=== PATIENT | female | born 2000 | race African-American/Black ===

== ENCOUNTER 2019-04-05 13:06 | Outpatient (CLI) | payer OTHER ==
[~2019-04-05] VITALS: Ht 165.1 cm; Wt 50.7 kg
[2019-04-05] MEDS ORDERED: PRENTAB9 PO (13:18)
[2019-04-05 13:23] VITALS: BP 97/52
[2019-04-05 15:36] VITALS: BP 98/54
--- NOTE | 2019-04-05 15:44 | REP ---
OB ULTRASOUND: Real-time sonographic evaluation of the gravid uterus performed utilizing transabdominal and endovaginal technique. There is a single living intrauterine gestation. Estimated gestational age is 27 weeks 1 days, EDC 07/04/2019. Cervix is closed and measures 3.0 cm in length. heart rate 140 beats per minute. Amniotic fluid within normal limits, SHANTA 13.4 within normal range of 9.5 to 22.6. S/D ratio 2.90 within normal range. RI 0.65 within normal range. position is vertex. IMPRESSION: Transvaginal cervical length 3 cm. The cervix is closed with no funneling. heart rate 140 beats per minute. Normal amniotic fluid volume. Electronically Signed by Rojas Perez MD 04/05/2019 04:06 P
--- NOTE | 2019-04-05 16:16 | IPN ---
DATE: 04/05/2019 Mari is a 18-year-old, 3, para 0-1-1-1, at 27-1/7 weeks gestation, estimated date of confinement (EDC) of 07/04/2019 based on last period and confirmed by second trimester ultrasound, presents to labor and delivery today with a complaint of sharp stabbing pain in both lower quadrants with activity. She denies vaginal bleeding, leakage of fluid and contractions. Her fetus has been active. She also complains of some shortness of breath. [place] care [place] with a transfer into [facility]. She is scheduled to be seen for the first time next week in this local office. course complicated by a history of delivery, she did decline Tuyet injections, history of anxiety, history of Marfan's syndrome where she was seen and no definitive diagnosis was come to. OBSTETRICAL HISTORY: May 2016, elective termination of , dilation and curettage. December 2016, 36-5/7 weeks, 5 pound 15 ounce male, premature rupture of membranes (PPROM), delivery. OBSTETRIC LABS: O+, antibody screen negative, varicella immune, rubella immune, VDRL nonreactive. Hep B surface antigen negative, HIV negative. Hep C antibody nonreactive. Initial chlamydia was positive. Gonorrhea negative. Test of cure chlamydia and gonorrhea both negative. Quad screen was negative. She has yet to perform her gestational diabetic screening and GBS is unknown. PAST MEDICAL HISTORY: 1. Anxiety. 2. Chlamydia. SURGERIES: Dilation and curettage. FAMILY HISTORY: Diabetes, thyroid disease, heart murmur. SOCIAL HISTORY: The patient is . Her and her child are at bedside. She is a nonsmoker. She denies alcohol and drug use. No history of any of physical, sexual or emotional abuse, and a positive history of Chlamydia. allergies. NO KNOWN DRUG ALLERGIES. CURRENT MEDICATIONS: - vitamins OBJECTIVE: Temperature 98.6, pulse 94, respirations are 16. Her blood pressure is 97/52. She is alert and oriented times three. She appears comfortable, in no distress. Her respirations are regular and easy. She is smiling and talkative as well as texting on her telephone. heart rate is 140, appropriate for gestational age. There is no pattern of regular contractions. Sterile vaginal exam deferred. Sonogram performed with a cervical length of 3 cm, posterior placenta. Amniotic fluid index of 13.4 cm. ASSESSMENT: Interim at 27-1/7 weeks, heart rate appropriate for gestational age, normal discomforts in , ligament discomfort. PLAN: I reviewed palliative measures for routine discomforts of . Advised abdominal support belt, physical therapy, massage if desired. I did review signs and symptoms of labor, access to care and movement counts. I reviewed all danger sounds to which to report. The patient and her have had their questions answered and are agreeable to discharge. They requested a note for to be out work. The note was not provided as the discomfort she has are normal and there is no need for her to be at home to help her with activities of daily living. KOLE
== END 2019-04-05 15:45 | disposition home or self-care (01) ==
LOC: M LDO 13:06
PROVIDERS: ATTEND Advanced Practice Midwife
DX: O26.893 Other specified pregnancy related conditions, third trimester (principal); R10.30 Lower abdominal pain, unspecified; R06.02 Shortness of breath; Z3A.27 27 weeks gestation of pregnancy

== ENCOUNTER → 2019-04-20 | Outpatient (CLI) | payer OTHER ==
[~2019-04-20] MED LIST: PRENTAB9 PO
[2019-04-20 17:25] LABS: HEMATOCRIT 32.6 % (36.0-47.0); HEMOGLOBIN 10.6 g/dl (12.0-15.5); MEAN CORPUSCULAR HEMOGLOBIN 28.9 pg (27.0-33.0); MEAN CORPUSCULAR HGB CONC 32.5 g/dl (32.0-36.5); MEAN CORPUSCULAR VOLUME 88.8 fl (80.0-96.0); PLATELET COUNT, AUTOMATED 166 10^3/uL (150-450); RED BLOOD COUNT 3.67 10^6/uL (4.00-5.40); WHITE BLOOD COUNT 10.9 10^3/uL (4.0-10.0)
== END ==
LOC: M LRY 10:00
PROVIDERS: ATTEND Obstetrics & Gynecology
DX: Z36.89 Encounter for other specified antenatal screening (principal); O09.212 Supervision of pregnancy with history of pre-term labor, second trimester

== ENCOUNTER → 2019-05-25 | Outpatient (CLI) | payer OTHER ==
--- NOTE | 2019-05-26 14:07 | REP ---
Clinical: Growth evaluation. Comparison: 04/05/2019 . Findings: Examination demonstrates a single live intrauterine in cephalic presentation. motion is identified by technologist. Placenta is noted posterior and grade I I without evidence for placenta previa or abruption. Amniotic fluid volume is normal. Cervix measures 3.0 cm in length and appears closed. No evidence for nuchal cord. Gestational age by LMP 34 weeks 2 days with PEPE 07/04/2019 . Gestational age by current measurements 32 weeks 6 days with PEPE 07/14/2019 . FHR equals 130 beats per minute. BPD 8.3 cm 33 weeks 2 days HC 29.6 cm 32 weeks 5 days AC 28.7 cm 32 weeks 5 days FL 6.4 cm 32 weeks 6 days HL 5.7 cm 33 weeks 1 day HC/AC ratio 1.03 Estimated weight 2052 grams (20th percentile). Amniotic fluid index: 12.7 cm Umbilical cord SD ratio: 2.00 Impression: Single live intrauterine in cephalic presentation demonstrating appropriate interval growth. No gross abnormalities are identified. Electronically Signed by Matty Castillo MD 05/26/2019 01:58 P
== END ==
LOC: M RAD 12:51
PROVIDERS: ATTEND Advanced Practice Midwife
DX: O99.213 Obesity complicating pregnancy, third trimester (principal); O99.89 Other specified diseases and conditions complicating pregnancy, childbirth and the puerperium

== ENCOUNTER → 2019-05-26 | Outpatient (REF) | payer OTHER | LOC: M LAB REF 16:37 | PROVIDERS: ATTEND Advanced Practice Midwife | DX: O09.213 Supervision of pregnancy with history of pre-term labor, third trimester (principal) ==

== ENCOUNTER 2019-06-05 15:38 | Inpatient (IN) | payer OTHER ==
[~2019-06-05] VITALS: Ht 165.1 cm; Wt 52.0 kg
[2019-06-05 15:52] VITALS: BP 108/64
[2019-06-05] MEDS ORDERED: LACTATED RINGER'S 1000 ML IV STA (16:28)
[2019-06-05 16:48] LABS: APPEARANCE, URINE CLEAR (CLEAR); BACTERIA, URINE AUTO NEGATIVE (NEGATIVE); BILIRUBIN, URINE AUTO NEGATIVE (NEGATIVE); BLOOD, URINE BLOOD NEGATIVE (NEGATIVE); COLOR, URINE YELLOW (YELLOW); GLUCOSE, URINE (UA) AUTO NEGATIVE (NEGATIVE); KETONE, URINE AUTO NEGATIVE (NEGATIVE); LEUKOCYTE ESTERASE, URINE AUTO NEGATIVE (NEGATIVE); NITRITE, URINE AUTO NEGATIVE (NEGATIVE); PROTEIN, URINE AUTO NEGATIVE (NEGATIVE); RBC, URINE AUTO 0 /HPF (0-3); SPECIFIC GRAVITY URINE AUTO 1.008 (1.002-1.035); SQUAMOUS EPITHELIAL CELL UR AU 1 /HPF (0-6); UROBILINOGEN, URINE AUTO 0.2 mg/dL (0.0-2.0); WBC, URINE AUTO 1 /HPF (0-3)
[2019-06-05] MEDS: BETAMETHASONE SOLUSPAN 6MG/ML INJ 5ML (J0702) IM SCH (16:52)
[2019-06-05 17:00] VITALS: BP 120/76
[2019-06-05 17:22] LABS: HEMATOCRIT 32.1 % (36.0-47.0); HEMOGLOBIN 10.6 g/dl (12.0-15.5); MEAN CORPUSCULAR HEMOGLOBIN 28.5 pg (27.0-33.0); MEAN CORPUSCULAR VOLUME 86.3 fl (80.0-96.0); PLATELET COUNT, AUTOMATED 158 10^3/uL (150-450); RED BLOOD COUNT 3.72 10^6/uL (4.00-5.40); WHITE BLOOD COUNT 10.8 10^3/uL (4.0-10.0)
--- NOTE | 2019-06-05 17:41 | HPEPDOC ---
Obstetrical History & Physical General Date of Admission observation: 06/05/19 Primary Care Physician: MARTY SCOTT CNM History of Present Illness Patient is a 18-year-old female who is a at 35.6 weeks gestation with an PEPE of 07/04/19 based off of her LMP. She transferred care in her third trimester with [facility]. Her has been complicated by +CT during and a history of PPROM and delivery at 36.[address] was negative. She was being worked up for Marfan's Syndrome but no definitive diagnosis was made. She presents to L&D today with increased pressure and back pain that is intermittent and about every 2 minutes. She denies contractions in the abdomen. She denies bleeding or leaking of fluid. She reports vaginal discharge that is not itching and has not odor. She denies vaginal bleeding. Information Provided By: Patient Age: 18 : 3 Term: 0 Pre-term: 1 Abortions: 1 Livin Care Care: Good Care Dating Final EDC: Jul 04, 2019 Final EDC by: LMP LMP: Sep 27, 2018 EGA at Admission: 35.6 Antepartum Course Diagnos(e)s History of PPROM at 36.6 weeks Height (inches): 65 Pre- weight (lbs.): 92 Admission Weight (lbs.): 114 Change in Weight (lbs.): 22 Past Medical History Past Obstetrical History : Past Obstetrical History: Primgravida Gestation: 36.6 Type of Delivery: Spontaneous Vaginal Del. 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 Low BMI Surgical History: Dilatation and Curettage Family History Significant Family History: Diabetes, Other (thyroid disease) Social History Marital Status: Family situation: Spouse/partner home Psychosocial History: Anxiety * Smoker: non-smoker Alcohol: Denies Drugs: denies Abuse Violence Screening Have you been hit/kicked/slapp: No Have you been sexually assault: No Allergies Coded Allergies: No Known Allergies (Unverified , 04/05/19) Medications Scheduled No.137/Iron/Folic Acd ( Vitamin Tablet) 1 Each Tablet, 1 TAB PO DAILY Physical Examination Physical Examination GENERAL: Alert and oriented times three. BREAST: . ABDOMEN: Gravid and non-tender to touch. FETUS: Is vertex (VTX) by sterile vaginal examination (SVE), fetus is vertex (VTX) by Brice. HEART RATE: Regular rate and rhythm. LUNGS: Clear to auscultation (CTA). EXTREMITIES: No edema. No clonus. Deep tendon reflexes (DTRs) + 2. Vital Signs/I&O Vital Signs Date Time Temp Pulse Resp B/P (MAP) Pulse Ox O2 Delivery O2 Flow Rate FiO2 06/05/19 17:00 99.4 93 18 120/76 (91) 06/05/19 15:52 100 Room Air Laboratory Data 24H LABS Laboratory Tests 2 06/05/19 16:14: Urine Color YELLOW, Urine Appearance CLEAR, Urine pH 7.0, Urine Specific [place] 1.008, Urine Protein NEGATIVE, Urine Glucose (Auto)(UA) NEGATIVE, Urine Ketones (Auto) NEGATIVE, Urine Blood NEGATIVE, Urine Nitrite NEGATIVE, Urine Bilirubin NEGATIVE, Urine Urobilinogen 0.2, Urine Leukocyte Esterase (Auto) NEGATIVE, Urine WBC (Auto) 1, Urine RBC (Auto) 0, Urine Hyaline Casts (Auto) 0, Urine Bacteria (Auto) NEGATIVE, Urine Squamous Epithelial Cells 1, Urine Sperm (Auto) 06/05/19 16:56: CBC/BMP Microbiology Microbiology 06/05/19 Urine Culture, Received Pending Urine Culture: No Growth Pertinent Laboratoy Data Blood Type: O+ RBC Antibody Screen: Negative HIV: Negative Hepatitis B: Negative Hepatitis C: Negative Rapid Plasma Reagin: Nonreactive Rubella: Immune Varicella: Immune Chlamydia/Gonorrhea: Positive (repeat negative) Group B Streptococcus: Negative Quad Screen Test: Negative Glucose Tolerance Test: 115 Anatomy Ultrasound Ultrasound Date: May 25, 2019 Normal Anatomy: Yes Placenta Previa: No Estimated Weight (grams): 2051 Steroid Therapy Steroid Therapy: Yes Date #1: Jun 05, 2019 Vaginal Examination Dilation: 2cm (2-3 cm) Effacement: 90% Station: 0 Cervical Consistency: Soft Cervical Position: Middle Presentation: Cephalic presentation Position: Vertex (occiput) Assessment Heart Rate (FHR): 125 Variability: Moderate Accelerations: Positive Decelerations: None Tocometer Contractions: Yes Frequency: regular Multi-drug resistant Organism: No history of MDRO Assessment/Plan Assessment IUP at 35.6 weeks gestation contractions-rule out labor GBS negative Category I FHR tracing Plan OUT patient status for 24 hours. Will admit patient with cervical change. Counseled on plan of care. Diet: regular. Group B Streptococcus (GBS) negative. Labs and intravenous (IV) per unit protocol. Betamethasone IM injections 12 mg now and again in 24 hours. Lactated Ringers (LR): Bolus 800 mL, then at 125 mL/hr. Will continue to monitor for labor. MARTY SCOTT CNM Jun 05, 2019 17:41
[2019-06-05] MEDS: LR 1,000 ML IV SCH ×2 (17:44→19:41)
[2019-06-05 18:35] VITALS: BP 117/73
[2019-06-05] MEDS ORDERED: PROMETHAZINE INJ 25 MG/ML VIAL (J2550) IV ONE (19:45)
[2019-06-05] MEDS ORDERED: BUTORPHANOL 2 MG/ML INJ (J0595) IV ONE (19:45)
--- NOTE | 2019-06-05 19:50 | IPNPDOC ---
Obstetrical Progress Note Date of Service Jun 05, 2019 Subjective Patient reports she is still feeling contractions in her back. Objective Vital Signs Date Time Temp Pulse Resp B/P (MAP) Pulse Ox O2 Delivery O2 Flow Rate FiO2 06/05/19 18:35 91 18 117/73 (88) 06/05/19 17:00 99.4 06/05/19 15:52 100 Room Air Assessment Heart Rate (FHR): 130 Variability: Moderate Accelerations: Positive Decelerations: None Heart Rate Tracing: Category I Tocometer Contractions: Yes Frequency: other (5-8 minutes) Assessment and Plan Age: 18 : 3 Term: 0 Pre-term: 1 Abortions: 1 Livin Weeks & Days 35.6 Status: Reassuring Additional Comments No change noted on . Patient desires to have something to help with her back pain and to help her sleep. Stadol and Phenergan ordered via IV. MARTY SCOTT CNM Jun 05, 2019 19:50
--- NOTE | 2019-06-06 00:05 | IPNPDOC ---
Obstetrical Progress Note Date of Service Jun 06, 2019 Subjective Patient rpeorts she is more uncomfortable and now feeling some of her contractions in her abdomen as cramping. Still having contractions in her back. Objective Vital Signs Date Time Temp Pulse Resp B/P (MAP) Pulse Ox O2 Delivery O2 Flow Rate FiO2 06/05/19 20:08 18 06/05/19 18:35 91 117/73 (88) 06/05/19 17:00 99.4 06/05/19 15:52 100 Room Air Assessment Heart Rate (FHR): 130 Variability: Moderate Accelerations: Positive Decelerations: None Heart Rate Tracing: Category I Tocometer Contractions: Yes Frequency: regular, every 1-3 min., other (uterine irritability noted) Sterile Vaginal Examination Dilation: 3 cm Effacement (%): 90% Station: 0 Cervical Consistency: Soft Cervical Position: Middle Postion/Presentation: Cephalic presentation Assessment and Plan Age: 18 Weeks & Days 35.6 weeks Status: Reassuring Group B Streptococcus: Negative Additional Comments Desires more IV pain medications. Coags ordered due to contractions and frequency. SVE: no bloody show noted. MARTY SCOTT CNM Jun 06, 2019 00:05
[2019-06-06 00:46] LABS: INR 1.06; PROTHROMBIN TIME 13.5 SECONDS (11.8-14.0)
[2019-06-06 00:47] LABS: PARTIAL THROMBOPLASTIN TIME 27.4 SECONDS (25.0-38.4)
[2019-06-06] MEDS: LR 1,000 ML IV SCH ×3 (02:58→20:02)
[2019-06-06] MEDS ORDERED: BUTORPHANOL 2 MG/ML INJ (J0595) IV ONE ×2 (12:00)
[2019-06-06] MEDS ORDERED: PROMETHAZINE 25 MG TAB PO ONE (12:00)
[2019-06-06] MEDS ORDERED: PROMETHAZINE INJ 25 MG/ML VIAL (J2550) IV ONE ×2 (12:15)
[2019-06-06] MEDS: BETAMETHASONE SOLUSPAN 6MG/ML INJ 5ML (J0702) IM SCH (14:59)
[2019-06-06] MEDS ORDERED: OXYTOCIN DRIP 30 UNITS in IV 1 EA IV SCH (15:00)
[2019-06-06 15:38] LABS: HEMATOCRIT 30.3 % (36.0-47.0); HEMOGLOBIN 9.7 g/dl (12.0-15.5); MEAN CORPUSCULAR HEMOGLOBIN 28.3 pg (27.0-33.0); MEAN CORPUSCULAR VOLUME 88.3 fl (80.0-96.0); PLATELET COUNT, AUTOMATED 158 10^3/uL (150-450); RED BLOOD COUNT 3.43 10^6/uL (4.00-5.40); WHITE BLOOD COUNT 15.1 10^3/uL (4.0-10.0)
[2019-06-06 15:50] LABS: INR 1.04; PROTHROMBIN TIME 13.3 SECONDS (11.8-14.0)
[2019-06-06] MEDS ORDERED: FENTANYL 2MCG/ML ROPIVACAINE 0.2% IN 0.9% NACL 100ML IVBAG As Ordered ONE (19:50)
[2019-06-07] MEDS ORDERED: LR 1,000 ML IV SCH (00:38)
[2019-06-07] MEDS ORDERED: OXYTOCIN DRIP 30 UNITS in IV 1 EA IV SCH (00:38)
[2019-06-07] MEDS ORDERED: ONDANSETRON 4MG/2ML VIAL (J2405) IV PRN ×2 (00:45→01:30)
[2019-06-07] MEDS ORDERED: RHOGAM 300 MCG (1500 IU) INJ (J2790) IM SCH (00:45)
[2019-06-07] MEDS ORDERED: DIBUCAINE 1% OINTMENT 30GM TOP PRN (00:45)
[2019-06-07] MEDS ORDERED: ACETAMINOPHEN TAB 650MG DOSE (2X325MG) PO PRN (00:45)
[2019-06-07] MEDS ORDERED: IBUPROFEN 600 MG TAB PO PRN (00:45)
[2019-06-07] MEDS ORDERED: PROMETHAZINE 25 MG TAB PO PRN (00:45)
[2019-06-07] MEDS ORDERED: DOCUSATE SODIUM 100 MG CAP PO PRN (00:45)
[2019-06-07] MEDS ORDERED: EPIDURAL COMMENT XX SCH (01:30)
[2019-06-07] MEDS ORDERED: EPIDURAL/PCA KEYS XX PRN (01:30)
[2019-06-07] MEDS ORDERED: NALOXONE INJ 0.4 MG/1 ML VIAL (J2310) IV PRN (01:30)
[2019-06-07] MEDS ORDERED: LACTATED RINGER'S 1000 ML IV PRN (01:30)
[2019-06-07] MEDS ORDERED: REFRIGERATOR IV KEYS XX PRN (01:30)
[2019-06-07] MEDS ORDERED: ePHEDrine SULFATE 25 MG/5 ML(5MG/ML) SYRINGE IV PRN (01:30)
[2019-06-07] MEDS ORDERED: FENTANYL/ROPIVACAINE/NACL BAG 100 ML EPIDURAL SCH (01:30)
[2019-06-07] MEDS ORDERED: diphenhydrAMINE INJ 50MG/ML VIAL (J1200) IV PRN (01:30)
[2019-06-07] MEDS: IBUPROFEN 800 MG TAB PO PRN ×3 (02:03→19:37)
[2019-06-07 02:28] VITALS: BP 121/65
[2019-06-07] MEDS: ACETAMINOPHEN 500 MG TAB PO PRN ×3 (03:03→17:38)
[2019-06-07] MEDS: PRENATAL VITAMINS CHEWABLE TABLET PO SCH (08:48)
[2019-06-07 17:53] VITALS: BP 122/72
[2019-06-08 06:00] VITALS: BP 109/61
[2019-06-08] MEDS ORDERED: medroxyPROGESTERone ACET IM SUSP 150 MG/ML VIAL (J1050) IM ONE (07:15)
[2019-06-08] MEDS: PRENATAL VITAMINS CHEWABLE TABLET PO SCH (09:23)
[2019-06-08 18:15] VITALS: BP 110/66
== END 2019-06-08 18:50 | disposition home or self-care (01) | DRG 805 ==
LOC: M LDO 15:38 → M LDI 06-06 14:41 → M OBS 06-07 02:25
PROVIDERS: ADMIT Obstetrics & Gynecology; ATTEND Obstetrics & Gynecology
PROC: 10907ZC Drainage of Amniotic Fluid, Therapeutic from Products of Conception, Via Natural or Artificial Opening (ICD-10-PCS; 2019-06-06)
PROC: 10E0XZZ Delivery of Products of Conception, External Approach (ICD-10-PCS; principal; 2019-06-07)
DX: O60.14X0 Preterm labor third trimester with preterm delivery third trimester, not applicable or unspecified (principal); Z37.0 Single live birth; O45.8X3 Other premature separation of placenta, third trimester; Z3A.36 36 weeks gestation of pregnancy

== ENCOUNTER → 2019-08-29 | Outpatient (REF) | payer OTHER | LOC: M SFHCLERA 11:27 | PROVIDERS: ATTEND Physician Assistant | DX: N39.0 Urinary tract infection, site not specified (principal) | CPT/HCPCS: 81002; 81025; 87088; 87186; G0463 ==

== ENCOUNTER → 2019-09-06 | Outpatient (REF) | payer OTHER | LOC: M SFHCPLAZ 13:06 | PROVIDERS: ATTEND Advanced Practice Midwife | DX: R30.0 Dysuria (principal) | CPT/HCPCS: 87088; 87186; 96372; J1050 ==

== ENCOUNTER → 2020-10-28 | Outpatient (REF) | payer OTHER ==
[2020-10-29 12:01] LABS: CHLAMYDIA DNA AMPLIFICATION NEGATIVE (NEGATIVE); GC DNA AMPLIFICATION NEGATIVE (NEGATIVE)
== END ==
LOC: M SFHCWAGY 09:36
PROVIDERS: ATTEND Nurse Practitioner Women's Health
DX: Z11.3 Encounter for screening for infections with a predominantly sexual mode of transmission (principal)